=== PATIENT | female | born 1975 | race African-American/Black ===

== ENCOUNTER 2019-08-09 07:20 | Day surgery (SDC) | payer MEDICARE ==
[~2019-08-09] VITALS: Ht 152.4 cm; Wt 93.0 kg
[2019-08-09 08:22] LABS: BASOPHILS 0.7 % (0-2); EOSINOPHILS 3.2 % (0-7); HEMATOCRIT 43.7 % (36.0-48.0); IMMATURE GRANULOCYTES 0.2 % (0-5); LYMPHOCYTES 24.5 % (15-50); MCH 32.9 pg (26.0-34.0); MCV 102.6 fL (80.0-100.0); MEAN PLATELET VOLUME 11.3 fL (7.4-10.4); MONOCYTES 4.3 % (2-11); NEUTROPHILS 67.1 % (40-80); PLATELET COUNT 122 10x3/uL (130-400); RBC 4.26 10x6/uL (4.00-5.40); RDW 15.8 % (11.5-14.5); WBC 4.4 10x3/uL (4.8-10.8)
[2019-08-09 08:24] LABS: ANION GAP 15.9 mmol/L (8-16); CALCIUM 9.2 mg/dL (8.5-10.1); CARBON DIOXIDE 27.8 mmol/L (21.0-32.0); CREATININE - SERUM 7.3 mg/dL (0.6-1.3); POTASSIUM - SERUM 3.7 mmol/L (3.5-5.1)
[2019-08-09 08:55] LABS: INR 1.22 (0.85-1.17); PROTIME 15.3 SECONDS (11.6-15.0)
[2019-08-09 09:15] LABS: HCG SERUM NEGATIVE (NEGATIVE)
[2019-08-09 09:16] VITALS: BP 144/107; Ht 152.4 cm; Wt 93.0 kg
--- NOTE | 2019-08-09 15:51 | NUR ---
1400 VITAL SIGNS AT BASELINE. PT STATES SHE RUNS HIGH AND WILL TAKE HER B/P MED WHEN SHE GETS HOME. PT VOICES UNDERSTANDING OF DISCHARGE INSTRUCTIONS AND THE FOLLOWUP PLACE AND TIME FOR NEXT FISTULOGRAM. IV DC'D. NO BLEEDING AT SITE. BANDAID APPLIED. NO NAUSEA. NO EMESIS. PT STATES SHE IS READY TO BE DISCHARGED HOME.
--- NOTE | 2019-08-10 17:00 | OP ---
PATIENT NAME: MEEK MILLER MEDICAL RECORD: [id number] :79 LOCATION:[facility] ADMISSION DATE: SURGEON: SAMANTA LEO MD DATE OF OPERATION: 08/09/2019 REFERRED BY: Dr. Davies, the patient is on hemodialysis at [place], [place]. PREOPERATIVE DIAGNOSIS: End-stage renal disease, dependence on renal dialysis. 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 POSTOPERATIVE DIAGNOSIS: End-stage renal disease, dependence on renal dialysis. 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 OPERATION PERFORMED: Right upper extremity AV fistulogram after ultrasound-guided access. Then angioplasty and stenting of the area of central venous stenosis with 11 mm x 39 mm [place] VBX balloon expandable PTFE covered stent. SURGEON: Samanta Leo MD ANESTHESIA: General endotracheal per CHEF GERMAN. PREOPERATIVE NOTE: Ms. Miller is a 43-year-old -[place]iss female from [place], [place]. She has been dialyzing for some time with a brachiobasilic AV fistula on the right upper extremity, but has developed severe central vein stenoses. Her dialysis access has been kept open by collaterals and she has developed extensive extreme edema of the arm and chest wall and breast. She is known to have a severe stenosis of the subclavian and innominate veins on the right and is brought to the hospital today to have a fistulogram and if necessary, angioplasty and stenting of the central venous strictures. DESCRIPTION OF PROCEDURE: Under anesthesia in supine position, the patient was prepped and draped in a sterile manner. Using ultrasound guidance and micropuncture technique, I accessed her fistula just above the antecubital level and subsequently inserted a 9-English introducer sheath. Contrast injections permitted a fistulogram from arterial anastomosis to the superior vena cava and right atrium and the patient was found to have a very severe stenosis 90% of the proximal subclavian vein and the entire innominate or brachiocephalic vein and stenosis also of the orifice of the internal jugular vein. I was subsequently able to cross these areas of stenosis with a Glidewire and glide catheter and then performed a wire exchange and placing a stiff Amplatz wire in the inferior vena cava. Over that, we introduced a [place] VBX balloon expandable stent, another contrast injection was made and a roadmap image prepared in the proposed sites for landing the stent identified and marked on the screen. The stent was inserted, positioned, and deployed with little difficulty. The initial balloon OPERATIVE REPORT [id number] MILLERMEEK LEONG Anel was carefully removed, and a 14 mm Carey balloon was inserted and this was used to further expand the stent beyond its nominal diameter up to a 14-mm diameter stent and this resulted in some additional foreshortening which left us basically with the proximal end of the stent just where we had wanted it. Repeated contrast injections revealed a dramatic improvement. The hardware paraphernalia was removed. Hemostasis was obtained at the puncture site with a 4-0 Prolene suture and a sterile dressing was applied. Hemostasis required only a brief period of direct pressure. I did note that her fistula was much less hyper pulsatile after the procedure than it had been at the beginning of the operation. She will go home today and continue her same medications and dialysis schedule. I asked that she return to see me at the [facility] procedure center in late August when I am on duty and I will perform a followup angiogram at that time. TRANSINT:[id number] Voice Confirmation ID: [id number] DOCUMENT ID: [id number] cc: SAMANTA Perdomo MD at 1700 CC: MARISSA DAVIES III MD [id number] DICTATION DATE: 08/09/19 1445 DIGITAL ACCOUNT COORDINATOR: 08/10/19 003 [facility] 08/09/19 [facility] [address] [place] [address]
== END 2019-08-09 14:09 | disposition home or self-care (01) ==
LOC: D.OPS 07:20
PROVIDERS: Anesthesiology; Surgery; ATTEND Internal Medicine Nephrology
DX: N18.6 End stage renal disease (principal); Z99.2 Dependence on renal dialysis; T82.590A Other mechanical complication of surgically created arteriovenous fistula, initial encounter; I87.1 Compression of vein; E66.01 Morbid (severe) obesity due to excess calories; I12.0 Hypertensive chronic kidney disease with stage 5 chronic kidney disease or end stage renal disease